=== PATIENT | male | born 1985 | race Caucasian/White ===

== ENCOUNTER 2022-06-13 12:01 | Emergency (ER) | payer OTHER ==
[~2022-06-13] VITALS: Ht 177.8 cm; Wt 93.2 kg
[2022-06-13 12:07] VITALS: BP 136/97
== END 2022-06-13 15:11 | disposition home or self-care (01) ==
LOC: ER 12:01
DX: K42.9 Umbilical hernia without obstruction or gangrene (principal); Z72.0 Tobacco use; Z72.89 Other problems related to lifestyle
CPT/HCPCS: 76705; 99284

== ENCOUNTER 2022-09-07 08:10 | Day surgery (SDC) | payer OTHER ==
[2022-09-02 13:52] LABS: BASOPHILS % (AUTO) 0.7 % (0-1); EOSINOPHILS # (AUTO) 0.2 X10'3 (0-0.9); EOSINOPHILS % (AUTO) 2.7 % (0-6); LYMPHOCYTES # (AUTO) 3.1 X10'3 (1.1-4.8); LYMPHOCYTES % (AUTO) 40.6 % (21-51); MEAN CORPUSCULAR HEMOGLOBIN 29.4 PG (27.0-31.0); MEAN CORPUSCULAR HGB CONC 34.1 g/dL (33.0-36.5); MEAN CORPUSCULAR VOLUME 86.3 FL (78-98); MEAN PLATELET VOLUME 6.9 FL (7.4-10.4); MONOCYTES % (AUTO) 13.4 % (2-12); NEUTROPHILS # (AUTO) 3.2 X10'3 (1.8-7.7); NEUTROPHILS % (AUTO) 42.6 % (42-75); PRE OP HEMATOCRIT 45.8 % (42.0-52.0); PRE OP HEMOGLOBIN 15.6 g/dL (14.0-17.9); PRE OP PLATELET COUNT 223 X10'3 (140-440); RED BLOOD COUNT 5.31 X10'6 (4.70-6.10); RED CELL DISTRIBUTION WIDTH 13.5 % (11.5-14.5)
[2022-09-02 14:00] LABS: ALBUMIN 4.2 G/DL (3.4-5.0); ALBUMIN/GLOBULIN RATIO 1.3 (1.1-1.5); ALKALINE PHOSPHATASE 68 IU/L (46-116); BLOOD UREA NITROGEN 14 MG/DL (7-18); BUN/CREATININE RATIO 13.3 (5.4-32.0); CHLORIDE 104 MMOL/L (99-107); CREATININE 1.05 MG/DL (0.60-1.10); PRE OP ALT 60 U/L (30-65); PRE OP ANION GAP 7 (8-16); PRE OP AST 20 U/L (10-37); PRE OP BILIRUB, TOTAL 0.3 MG/DL (0.0-1.0); PRE OP GLUCOSE 99 MG/DL (70-104); PRE OP SODIUM 141 MMOL/L (135-145); TOTAL CARBON DIOXIDE 29.7 MMOL/L (24-32); TOTAL PROTEIN 7.5 G/DL (6.4-8.2); eGFR 80 ML/MIN
[2022-09-07] VITALS (14 sets, daily range): BP systolic 114–169; BP diastolic 76–103
[~2022-09-07] VITALS: Ht 177.8 cm; Wt 98.5 kg
[~2022-09-07 08:10] MED LIST: ceFAZolin inj. 2,000 MG in dextrose 5%-water 100 ML IV ONE; famotidine 20mg tablet PO ONE; meperidine/PF 25mg/ml syringe IV PRN; morphine 2 MG/ML inj. syringe IV PRN; morphine 4 MG/ML inj SYRINge IV PRN; ondansetron/PF 4mg/2ml inj IV PRN; proCHLORperazine 10 MG/2 ml inj IV PRN; ringers solution, lacted 1,000 ML IV SCH
[2022-09-07] MEDS ORDERED: midazolam 1 mg/ML 2ml injection ONE (10:21)
[2022-09-07] MEDS ORDERED: fentaNYL/PF 50MCG/1 ML 2ML syringe ONE (10:21)
[2022-09-07] MEDS ORDERED: LIDOcaine 2% (20mg/ml) 5ml vial ONE (10:22)
[2022-09-07] MEDS ORDERED: meperidine/PF 25mg/ml syringe ONE (10:22)
[2022-09-07] MEDS ORDERED: rocuronium 10mg/ml inj IV ONE (10:22)
[2022-09-07] MEDS ORDERED: LIDOcaine 1% 30ml preserv. free vial ONE (10:45)
[2022-09-07] MEDS ORDERED: BUPIVAcaine 0.5% inj/PF 30 ML ONE ×2 (10:46→11:02)
[2022-09-07] MEDS ORDERED: BUPIVACAINE liposomal/PF 13.3 MG/ML vial IM ONE ×2 (11:02→11:30)
[2022-09-07] MEDS ORDERED: propofol 10mg/ml 20ml vial IV ONE (11:08)
[2022-09-07] MEDS ORDERED: neostigmine methylsulfate 1 MG/ML 10ml vial ONE (11:08)
[2022-09-07] MEDS ORDERED: sevoflurane 250ml liquid IH ONE (11:08)
[2022-09-07] MEDS ORDERED: glycopyrrolate 0.2mg/ml inj ONE (11:08)
[2022-09-07] MEDS ORDERED: dexamethasone sod phosphate 4mg/ml inj. ONE (11:29)
[2022-09-07] MEDS ORDERED: ondansetron/PF 4mg/2ml inj ONE (11:29)
[2022-09-07] MEDS ORDERED: LIDOcaine 1% 30ml preserv. free vial IJ ONE (11:30)
[2022-09-07] MEDS ORDERED: BUPIVAcaine 0.5% inj/PF 30 ml vial IJ ONE ×2 (11:30)
[2022-09-07] MEDS ORDERED: ketorolac trometh. 30mg/ml inj. ONE (12:13)
[2022-09-07] MEDS ORDERED: oxyCODONE/APAP 5-325mg tablet PO PRN (12:25)
--- NOTE | 2022-09-07 12:35 | NUR ---
Received from OR via [facility], accompanied by Anesthesiologist DR RODGERS and report given by Anesthesiolgist. PT IS GROGGY. PT HAS ORAL AIRWAY IN PLACE. PT PLACED ON BEDSIDE MONITOR, VSS. PT IS IN SR WITH RATE IN 70'S. PT IS RECEIVING 10L O2 TO MASK AND TOLERATING WELL WITH O2 SAT >93%. PT HAS 20G PIV TO LEFT FA WITH LR INFUSING ORDERED. PT HAS BAND-AIDS X4 TO MID ABD THAT ARE ALL CDI AND ABD BINDER IN PLACE.. PT IS RESTING WITH NO S/S OF DISTRESS OR DISCOMFORT NOTED, WILL CONTINUE TO ASSESS.
--- NOTE | 2022-09-07 14:35 | NUR ---
D/C HOME PATIENT A&OX4, DENIES PAIN, V/S WNL, SCD OFF, 20G TO LT FA D/C. I HAVE REVIEWED D/C INSTRUCTIONS WITH PATIENT INSTRUCTIONS WITH PATIENT AND THEY HAVE VERBALIZED UNDERSTANDING. PATIENT D/C HOME WITH ALL BELONGINGS AND TRANSPORTED PATIENT
== END 2022-09-07 14:28 | disposition home or self-care (01) ==
LOC: PAS 08:10
PROVIDERS: ATTEND Surgery
DX: K43.6 Other and unspecified ventral hernia with obstruction, without gangrene (principal); Z79.899 Other long term (current) drug therapy; Z98.890 Other specified postprocedural states; Z72.89 Other problems related to lifestyle; F17.210 Nicotine dependence, cigarettes, uncomplicated
CPT/HCPCS: 36415; 49653; 80053; 82948; 85025; C1781; C9290; J0690; J1100; J1885; J2175; J2250; J2405; J2704; J2710; J3010; J3490; J7030; J7060; J7120; S0020; S2900; Z7506; Z7508; Z7512; A4215; A4618